=== PATIENT | female | born 1985 | race Caucasian/White ===

== ENCOUNTER 2023-05-13 13:30 | Outpatient (RCR) | payer OTHER, SELFPAY ==
--- NOTE | 2023-02-19 09:31 | HP.PTEVAL ---
Patient's Visit Information TRENT ALAN is a 37 year old F referred to Physical Therapy by Dr. Esha Johnson MD with a diagnosis of DECREASED PELVIC FLOOR TONE . Date of Evaluation: 02/19/23 Physical Therapist: Diane Heath PT, Cert MDT - Visit Plan Frequency: 1x/Week Duration: 8-12 WKS Plan: MANUAL PF THERAPY FOR STRENGTHENING, LENGTHENING/RELAXATION AND ENDURANCE TRAINING. PELVIC FLOOR STRENGTHENING. URINARY RETENTION, URGE AND FREQUENCY EDUCATION. HEALTHY BLADDER HABIT EDUCATION. TRAINING IN COORDINATION OF PELVIC FLOOR MUSCULATURE WITH HIP AND CORE (TRANSVERSE ABDOMINUS) MUSCULATURE. POSTURE CORRECTION/STRENGTHENING. CORE STRENGTHENING. KAIT LE ROM, STRETCHING AND STRENGTHENING. TRAINING IN ABDOMINAL CAVITY PRESSURE MGMT WITH ADL'S. - Subjective Work/Leisure: [employer] AND [employer] - [employer]. Present symptoms: PATIENT REPORTS SHE HAS AN ANNOYING BULGING FEELING IN VAGINAL AREA WITH LIFTING HAIL BAILS AND BAGS OF FEED - ETC. ONLY LEAKING A FEW DROPS OF URINE DURING STANDING AFTER URINATING. H/O STRESS INCONTINENCE SYMPTOMS WITH THINGS LIKE RUNNING AND JUMPING AFTER FIRST BABY BUT CURRENTLY NOT DOING THESE THINGS DUE TO RECENT DELIVERY 12/26/22. Is it getting better, worse or staying the same: MAYBE IMPROVING A LITTLE BIT. NOT FEELING BULGING CONSTANTLY NOW. BULGING IS EASILY PROVOKED WITH LIFTING. Commenced as a result of: DELIVERY. Disturbed sleep: 0-1 TIMES A NIGHT TO URINATE. Previous history/Previous treatment: NO PRIOR PELVIC FLOOR TESTING OR TREATMENT. Coughing/sneezing/straining: POSITIVE FOR UI. Gait: NORMAL. How long can you delay the need to urinate: APPROX 15 MINUTES. Prolapse (Falling out feeling): YES. Frequency of Urination: UNSURE. Ability to stop urine flow: NO. Ability to initiate urine stream: YES. Dyspareunia: MILDLY POSITIVE. Bowel Incontinence: NO. Accidents: NO. Imaging: NO. PMH/Recent major surgery: UNREMARKABLE. - Objective Sitting/Standing Posture: FAIR. Lordosis: NORMAL. Lateral shift: NO. Relevant shift: N/A. Other Observations: INDEP GAIT AND TRANSFERS. ROM deficit: MILD KAIT HIP ADDUCTOR TIGHTNESS. Motor deficit: KAIT LE'S 5/5 EXCEPT HIPS 4+/5. Dural Signs: NEGATIVE KAIT LE'S. Lumbar mvmt loss: flex - NIL. ext - NIL. R SG - NIL. L SG - NIL. Core strength: POOR. Palpation: PATIENT DEFERRED INTERNAL MANUAL PF TESTING TODAY BUT WILL CONSIDER IN THE FUTURE. FUNCTIONAL SCREEN: Incontinence Impact Questionnaire Score: 2. Urogenital Distress Inventory Score: 6. TREATMENT: THER ACT - INITIATION OF HEP WITH QUICK FLICK KEGELS. WRITTEN INSTRUCTIONS PROVIDED. EDUCATION IN ANATOMY AND PHYSIOLOGY OF PELVIC FLOOR, BLADDER AND PROLAPSE. INSTRUCTED TO AVOID KEGELS ON THE TOLIET, BEARING DOWN AND ACTIVITIES THAT CAUSE BULGING. - Goals Goal 1:: DECREASE URINARY LEAKAGE EPISODES TO ONE OR LESS PER DAY Goal Time Frame: 4-6 Weeks Goal 2:: PATIENT WILL SUCCESSFULLY DELAY VOIDING FOR 30 MINUTES WHEN URGENCY OCCURS Goal Time Frame: 2-4 Weeks Goal 3:: PATIENT WILL DEMONSTRATE/COMMUNICATE 10 CONSISTENT AND CONSECUTIVE 10 SECOND PELVIC FLOOR MUSCLE CONTRACTIONS TO DEMONSTRATE IMPROVED PELVIC FLOOR ENDURANCE. Goal Time Frame: 8-12 Weeks Goal 4:: PATIENT WILL BE ABLE TO HAVE SEXUAL RELATIONS WITH HER WITHOUT PAIN. Goal Time Frame: 4-6 Weeks Goal 5:: NORMALIZE VOIDING FREQUENCEY TO EVERY 3-4 HOURS. Goal Time Frame: 2-4 Weeks Goal 6:: PATIENT WILL BE INDEP WITH A HEP/HOME INSTRUCTIONS FOR CONTINUED IMPROVEMENT ONCE FORMAL PHYSICAL THERAPY CONCLUDES. Goal Time Frame: 8-12 Weeks - Anticipated Interventions Patient/Client Instruction: Educate patient on: Condition, Plan of Care, Risk Factors For the Purpose of:: To improve self management Therapeutic Exercise to Include: Strength training, Body mechanics, Postural training, Flexibilty training, Neuromotor development For the Purpose of:: To improve muscle performance and motor function, To increase tolerance to activity/condition/position, To improve ability of physical actions for home/community/work/leisure Thank you for the opportunity to evaluate your patient. For Medicare and Medicare HMO plans, please review the plan of care and approve it. It will need to be FAXED BACK to us at [phone] for Medicare purposes. For Medicare only, by signing this I certify the plan of care. Please let me know if there are questions or concerns regarding this plan of care. Physician Signature: Date:
--- NOTE | 2023-05-13 14:01 | HP.PTDCSUM_ITS ---
Discharge Summary D/C summary: It has been my pleasure to treat TRENT ALAN referred by Dr. Esha Johnson MD, with the diagnosis of DECREASED PELVIC FLOOR TONE for a total of 9 visit(s). Discharge Date: 05/13/23 Please see the following information for a summary of their discharge status. Subjective Subjective: IT IS SO GOOD COMPARED TO WHAT IT WAS. 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 SHE REPORTS THAT FOR THE MOST PART EVERYTHING FEELS NORMAL AGAIN. NO LONGER HAVING ANY URINARY INCONTINENCE. PATIENT REPORTS SHE IS GOING TO FOLLOW UP WITH HER OBGYN 06/10/23 AND WILL CONTINUE HER HEP. Overall Improvement % Improvement: 90 Objective Objective/Function: PATIENT IS VERY PLEASANT AND COOPERATIVE TO WORK WITH AND ALL GOALS HAVE BEEN MET. SHE IS APPROPRIATE FOR DISCHARGE AND HAS BEEN REFERRED BACK TO HER OBGYN FOR QUESTIONS ABOUT SAFETY WITH FURTHER PREGNANCIES. FUNCTIONAL SCREEN: Incontinence Impact Questionnaire Score: 1. Urogenital Distress Inventory Score: 1 Goals Goal 1:: DECREASE URINARY LEAKAGE EPISODES TO ONE OR LESS PER DAY Goal Progress: Goal Met Goal 2:: PATIENT WILL SUCCESSFULLY DELAY VOIDING FOR 30 MINUTES WHEN URGENCY OCCURS Goal Progress: Goal Met Goal 3:: PATIENT WILL DEMONSTRATE/COMMUNICATE 10 CONSISTENT AND CONSECUTIVE 10 SECOND PELVIC FLOOR MUSCLE CONTRACTIONS TO DEMONSTRATE IMPROVED PELVIC FLOOR ENDURANCE. Goal Progress: Goal Met Goal 4:: PATIENT WILL BE ABLE TO HAVE SEXUAL RELATIONS WITH HER WITHOUT PAIN. Goal Progress: Goal Met Goal 5:: NORMALIZE VOIDING FREQUENCEY TO EVERY 3-4 HOURS. Goal Progress: Goal Met Goal 6:: PATIENT WILL BE INDEP WITH A HEP/HOME INSTRUCTIONS FOR CONTINUED IMPROVEMENT ONCE FORMAL PHYSICAL THERAPY CONCLUDES. Goal Progress: Goal Met Plan Plan: D/C. PATIENT AGREEABLE. D/C Information d/c sentence: If there are questions or concerns regarding this patient's physical therapy, please feel free to call me at [phone]. Thank you for the referral of this patient. Sincerely, Diane Heath, PT, Cert MDT Balance/Gait/Functional tests Improvement % Improvement: 90
== END 2023-05-13 14:19 | disposition home or self-care (01) ==
LOC: PT 13:30
PROVIDERS: Referring Provider Obstetrics & Gynecology Gynecology; Visit Provider Obstetrics & Gynecology Gynecology
DX: O71.5 Other obstetric injury to pelvic organs (principal); Z39.2 Encounter for routine postpartum follow-up; Z30.9 Encounter for contraceptive management, unspecified
CPT/HCPCS: 97161; 97530